=== PATIENT | male | born 1995 ===

== ENCOUNTER 2022-04-03 18:17 | Emergency (ER) | payer OTHER ==
[~2022-04-03] VITALS: Ht 167.6 cm; Wt 81.6 kg
[2022-04-03 18:42] VITALS: BP 112/76
[2022-04-03 19:50] LABS: Basophils # (auto) 0 10 ^3/uL (0-0.2); Basophils % (auto) 0.3 % (0.0-2.0); Eosinophils # (auto) 0.1 10 ^3/uL (0-0.8); Eosinophils % (auto) 0.6 % (0.0-7.0); Hemoglobin 16.8 g/dL (13.5-17.5); Lymphocytes % (auto) 19.3 % (10.0-50.0); Mean Corpuscular Hemoglobin 29.7 pg (28.0-32.0); Mean Corpuscular Hgb Conc. 33.6 g/dL (32.0-36.0); Mean Corpuscular Volume 88.2 fL (80.0-100.0); Monocytes # (auto) 0.7 10 ^3/uL (0-1.3); Monocytes % (auto) 6.8 % (0.0-12.0); Neutrophils # (auto) 7.4 10 ^3/uL (1.6-8.6); Nucleated Red Blood Cells % 0.1 %; Red Blood Cells 5.66 10^6/uL (4.5-5.90); Red Cell Distribution Width 14.1 % (11.8-14.3); White Blood Cell 10.1 10^3/uL (4.4-10.8)
[2022-04-03] MEDS ORDERED: PANT40TA2 PO (19:56)
[2022-04-03 20:01] LABS: Albumin 4.1 g/dL (3.4-5.0); Potassium 3.7 mmol/L (3.5-5.1)
[2022-04-03 20:02] LABS: BUN/Creatinine Ratio 11.1
[2022-04-03 20:05] LABS: Bilirubin, Total 0.5 mg/dL (0.2-1.0); Total Protein 7.6 g/dL (6.4-8.2)
[2022-04-03 21:02] LABS: Urine Bacteria NONE SEEN /hpf (None Seen); Urine Blood Negative /uL (Negative); Urine Mucus FEW (None Seen); Urine Specific Gravity 1.031 (1.001-1.035); Urine WBC 13 /hpf (0 - 3)
== END 2022-04-03 20:11 | disposition home or self-care (01) ==
LOC: ER 18:17
DX: K29.70 Gastritis, unspecified, without bleeding (principal); Z79.899 Other long term (current) drug therapy
CPT/HCPCS: 36415; 74176; 80053; 81001; 83690; 85025

== ENCOUNTER 2023-06-15 22:07 | Emergency (ER) | payer MEDICAID, OTHER ==
[~2023-06-15] VITALS: Ht 167.6 cm; Wt 77.1 kg
[~2023-06-15 22:07] MED LIST: PANT40TA2 PO
[2023-06-16] MEDS ORDERED: KETOROLAC TROMETH 30 MG/ML 1ML VIAL ONE (01:41)
[2023-06-16] MEDS ORDERED: CYCL-837 PO (01:46)
[2023-06-16] MEDS ORDERED: IBUP-1455 PO (01:46)
[2023-06-16] MEDS: KETOROLAC TROMETH 30 MG/ML 1ML VIAL IM ONE (01:48)
[2023-06-16 02:00] VITALS: BP 136/90; PULSE 75; RESP 18; TEMP 97.8; O2SAT 97
== END 2023-06-16 02:14 | disposition home or self-care (01) ==
LOC: ER 22:07
DX: S00.83XA Contusion of other part of head, initial encounter (principal); F15.90 Other stimulant use, unspecified, uncomplicated; Z98.890 Other specified postprocedural states; Z87.891 Personal history of nicotine dependence; Z79.899 Other long term (current) drug therapy; V43.52XA Car driver injured in collision with other type car in traffic accident, initial encounter; Y93.I9 Activity, other involving external motion; Y92.89 Other specified places as the place of occurrence of the external cause; Y99.8 Other external cause status
CPT/HCPCS: 70450; 70486; 72125; 96372; 99285; J1885